=== PATIENT | female | born 1975 | race Caucasian/White ===

== ENCOUNTER → 2020-01-23 12:36 | Outpatient (BNVA) | payer MEDICAID, SELFPAY | PROVIDERS: Visit Provider Specialist | DX: R41.3 Other amnesia (principal); F17.210 Nicotine dependence, cigarettes, uncomplicated | CPT/HCPCS: 99204 ==

== ENCOUNTER → 2020-02-01 14:32 | Outpatient (BNVA) | payer MEDICAID, SELFPAY | PROVIDERS: Visit Provider Specialist | DX: G93.1 Anoxic brain damage, not elsewhere classified (principal); F17.210 Nicotine dependence, cigarettes, uncomplicated | CPT/HCPCS: 95816 ==

== ENCOUNTER → 2020-02-23 08:31 | Outpatient (BNVA) | payer MEDICAID, SELFPAY | PROVIDERS: Visit Provider Psychiatry & Neurology Psychiatry | DX: F32.9 Major depressive disorder, single episode, unspecified (principal); G93.1 Anoxic brain damage, not elsewhere classified | CPT/HCPCS: 90792 ==

== ENCOUNTER → 2020-03-22 14:03 | Outpatient (BNVA) | payer MEDICAID, SELFPAY | PROVIDERS: Visit Provider Psychiatry & Neurology Psychiatry | DX: F32.9 Major depressive disorder, single episode, unspecified (principal); Z72.820 Sleep deprivation; G93.1 Anoxic brain damage, not elsewhere classified | CPT/HCPCS: 99214 ==

== ENCOUNTER → 2020-04-19 14:12 | Outpatient (BNVA) | payer MEDICAID, SELFPAY | PROVIDERS: Visit Provider Psychiatry & Neurology Psychiatry | DX: F32.9 Major depressive disorder, single episode, unspecified (principal); G93.1 Anoxic brain damage, not elsewhere classified | CPT/HCPCS: 99214 ==

== ENCOUNTER → 2020-05-02 08:02 | Outpatient (BNVA) | payer MEDICAID, SELFPAY | PROVIDERS: PCP Registered Nurse; Visit Provider Specialist | DX: R41.9 Unspecified symptoms and signs involving cognitive functions and awareness (principal); R41.3 Other amnesia; G93.1 Anoxic brain damage, not elsewhere classified; F32.9 Major depressive disorder, single episode, unspecified; F17.210 Nicotine dependence, cigarettes, uncomplicated | CPT/HCPCS: 96116; 99214 ==

== ENCOUNTER 2020-05-14 15:42 | Outpatient (CLI) | payer MEDICAID, SELFPAY ==
--- NOTE | 2020-05-14 16:00 | MR_ITS ---
WS: [id number] MRI HEAD WITHOUT CONTRAST TECHNIQUE: Sagittal T1, T2 axial, T2 axial FLAIR, axial and coronal T1 images, axial susceptibility w eighted imaging, axial diffusion weighted images, and coronal T2 images were obtained. CLINICAL INFORMATION: R41.3 - Other amnesia COMPARISON: CT 1 ,017 FINDINGS: No evidence of restricted diffusion to suggest acute ischemia. No suspicious intracranial signal abno rmalities. Normal rodriguez-white differentiation. No significant parenchymal volume loss. Normal posterior fossa. Normal vascular flow voids at the skull base. No extra-axial fluid collection s. Paranasal sinuses and mastoid air cells are well aerated. 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 No hemosiderin on susceptibly weighted images. Normal optic chiasm and pituitary infundibulum. T emporal lobes and hippocampal formations are normal in appearance. Normal optic chiasm and pituitary infundibulum. MR/MR head wo con* [id number] IMPRESSION: 1. No evidence of restricted diffusion to suggest acute ischemia. 2. No suspicious intracranial signal abnormalities. No significant parenchymal volume loss. 3. Paranasal sinuses and mastoid air cells well aerated. 4. Temporal lobes and hippocampal formations are normal in appearance. 5. Normal optic chiasm and pituitary infundibulum. 6. No hemosiderin on susceptibly weighted images. 7. Tornwaldt cyst posterior nasopharynx.
== END 2020-05-14 15:43 | disposition home or self-care (01) ==
LOC: RADSHAW 15:44
PROVIDERS: PCP Registered Nurse; Visit Provider Specialist
DX: J39.2 Other diseases of pharynx (principal); R41.3 Other amnesia
CPT/HCPCS: 70551

== ENCOUNTER → 2020-06-15 15:18 | Outpatient (BNVA) | payer MEDICAID, SELFPAY | PROVIDERS: PCP Registered Nurse; Visit Provider Psychiatry & Neurology Psychiatry | DX: F32.9 Major depressive disorder, single episode, unspecified (principal); Z72.820 Sleep deprivation; G93.1 Anoxic brain damage, not elsewhere classified | CPT/HCPCS: 99214 ==